=== PATIENT | male | born 1960 | race Caucasian/White ===

== ENCOUNTER 2020-06-01 15:10 | Observation (INO) | payer BC ==
[~2020-06-01] VITALS: Ht 172.7 cm; Wt 86.0 kg
--- NOTE | 2020-06-01 15:45 | NUR ---
PATIENT TO ROOM WITH A STEADY GAIT.
--- NOTE | 2020-06-01 16:05 | NUR ---
WAS UPSET ABOUT THE ABG RETRIVAL TAKING MORE THAN ONE ATTEMPT AND STOPPED THE RT IN TRYING TO TAKE IT. MD NOTIFIED AND TRIED TO TALK TO AND SHE CONTINUED TO REFUSE. ABG WAS NOT TAKEN
--- NOTE | 2020-06-01 16:40 | NUR ---
PT RESTING ON STRETCHER STABLE AND IN NO DISTRESS. FAMILY AT BEDSIDE. TREATMENTS COMPLETED AND PLAN OF CARE DISCUSSED. DENIES ANY NEEDS AT THIS TIME
[2020-06-01 16:47] LABS: HEMATOCRIT 40.2 % (39.0-50.0); HEMOGLOBIN 12.4 g/dl (14.0-18.0); IMMATURE GRANULOCYTES 0.7 % (0.0-5.0); MEAN CELL VOLUME 82.4 fL CALC (80.0-100.0); MEAN CORPUSCULAR HGB 25.4 pG CALC (26.0-32.0); MEAN CORPUSCULAR HGB CONC 30.8 g/dL CAL (32.0-36.0); NEUT# 4.28 thou/uL (1.82-7.42); RED BLOOD COUNT 4.88 mill/uL (4.70-6.10); RED CELL DISTRI WIDTH 14.3 % (11.5-15.5)
[2020-06-01 17:22] LABS: ALBUMIN 4.2 g/dL (3.2-5.0); ALKALINE PHOSPHATASE 65 u/l (38-126); ANION GAP 14 (6-22 (CALC)); BILIRUBIN, TOTAL 0.8 mg/dL (0.0-1.4); BUN 15 mg/dL (9-20); BUN/CREATININE RATIO 17 (12-20 (CALC)); CARBON DIOXIDE 28 mmol/l (22-30); CHLORIDE 101 mmol/l (95-108); CREATININE 0.9 mg/dL (0.7-1.3); GFR > 60 ML/MIN (>=60 (CALC)); GFR FOR AFR.AMER. > 60 ML/MIN (>=60 (CALC)); POTASSIUM 3.4 mmol/l (3.5-5.1); SGOT/AST 64 u/l (17-59); SODIUM 139 mmol/l (137-146); TOTAL PROTEIN 8.9 g/dL (6.3-8.2)
--- NOTE | 2020-06-01 17:47 | NUR ---
PER MD ORDER IV WAS INITIATED. MD AT BEDSIDE DISCUSSING PLAN OF CARE AND RESULTS.
--- NOTE | 2020-06-01 18:26 | NUR ---
DISCHARGE INSTRUCTIONS GIVEN TO PT AND SHE VERBALIZED UNDERSTANDING. PT AMBULATED OUT OF ER WITH STEADY GAIT/ EDU ON DX AND MED
--- NOTE | 2020-06-01 18:50 | NUR ---
REPORT GIVEN TO BRIT
--- NOTE | 2020-06-01 19:08 | NUR ---
REPORT RECEIVED FROM RUDY RN
--- NOTE | 2020-06-01 19:30 | NUR ---
PT RESITNG ON STRETCHER WITH EYES OPEN. RESP EVEN AND UNLABORED. SKIN WARM AND DRY. ADVISED OF CONT WAIT TIME FOR RESULTS. VERBALIZED UNDERSTANDIGN. DENEIS ANY NEEDS. CALL LIGHT WITHIN REACH.
--- NOTE | 2020-06-01 20:30 | NUR ---
PT REQUESTING TO USE URINAL. 400 CC OF AMINA COLORED URINE PRODUCED. PT PLACED BACK INTO BED. TRIAL EXAMINER IN PLACE. O2 @ 2L VIA NC- SAO2 @ 96-97%. PT VERBALIZES NO OTHER NEEDS AT THIS TIME. CALL LIGHT WITHIN REACH.
--- NOTE | 2020-06-01 21:00 | NUR ---
REPORT GIVEN TO KAROL KHALIL.
--- NOTE | 2020-06-01 21:10 | NUR ---
Admission Note Report Given to: KAROL KHALIL Transported by: X Wheelchair Stretcher Transported with: X Nurse Transporter X Patent IV X O2 X Event Marketing Specialist Location: ICU X MS2 PT TRANSPORTED TO [place] VIA WC WITH TELE AND O2 IN PLACE, KAROL KHALIL RECEIVING NURSE BEDSIDE. BELONGINGS IN TOTE WITH PT (BLUE SHIRT, SHOES, PHONE MANAGER CORPORATE STRATEGY AND PHONE)
[2020-06-01 21:37] VITALS: BP 149/91
--- NOTE | 2020-06-01 22:56 | NUR ---
PT ARRIVED TO THE FLOOR AT [facility]. PT IS ALERT AND ORIENTED X 3. PT IS UP AD CORKY. HE IS ABLE TO AMBULATE INDEPENDENTLY. CTA COMPLETED EARLIER, + FOR PNEUMONIA BILATERLY. DENIES PAIN AT THIS TIME. PT DID HAVE A LOW GRADE FEVER ON ADMISSION, 100.4, MEDICATED WITH TYLENOL, WILL MONITOR. BREATHING EVEN AND UNLABORED. UPPER LOBES CLEAR, R MIDDLE DIMISHED, BASES DIMINSHED. WILL MONITOR.
[2020-06-02] VITALS: BP 133/65
--- NOTE | 2020-06-02 00:59 | NUR ---
PT RESTING COMFORTABLY IN BED. PT STATED HE WAS HUGRY AND SLAT TWISTER BROUGHT HIM A TV DINNER. PT TOLERATED WELL. UPON ARRIVAL TO THE FLOOR, ATTEMPTED O FLUSH IV SITE IN RAC WITHOUT SUCCESS, SITE OCCLUDED. NEW SITE STARTED TO THE L OUTER AC, #20, FLUSHES EASILY. PT TOLERATED WELL. LUNGS CTA IN UPPER LOBES, DIMINSHED IN ALL OTHER LOBES. BREATHING EVEN AND UNLABORED. WILL CONTINUE TO MONITOR.
--- NOTE | 2020-06-02 03:39 | NUR ---
PT RESTING QUIETLY IN BED WITH EYES CLOSED. NO COMPLAINTS VOICED AT THIS TIME. NO S/S OF DISTRESS. BREATHING EVEN AND UNLABORED. WILL MONITOR.
[2020-06-02 04:00] VITALS: BP 141/85
[2020-06-02 05:45] LABS: HEMATOCRIT 38.6 % (39.0-50.0); HEMOGLOBIN 12.2 g/dl (14.0-18.0); MEAN CELL VOLUME 81.4 fL CALC (80.0-100.0); MEAN CORPUSCULAR HGB 25.7 pG CALC (26.0-32.0); MEAN CORPUSCULAR HGB CONC 31.6 g/dL CAL (32.0-36.0); NEUT# 5.27 thou/uL (1.82-7.42); RED BLOOD COUNT 4.74 mill/uL (4.70-6.10); RED CELL DISTRI WIDTH 14.3 % (11.5-15.5)
[2020-06-02 06:07] LABS: ALBUMIN 3.4 g/dL (3.2-5.0); ALKALINE PHOSPHATASE 57 u/l (38-126); ANION GAP 13 (6-22 (CALC)); BILIRUBIN, TOTAL 0.6 mg/dL (0.0-1.4); BUN 16 mg/dL (9-20); BUN/CREATININE RATIO 22 (12-20 (CALC)); C-REACTIVE PROTEIN 7.5 mg/dL (0-0.9); CARBON DIOXIDE 26 mmol/l (22-30); CHLORIDE 104 mmol/l (95-108); CREATININE 0.7 mg/dL (0.7-1.3); GFR > 60 ML/MIN (>=60 (CALC)); GFR FOR AFR.AMER. > 60 ML/MIN (>=60 (CALC)); SGOT/AST 52 u/l (17-59); SODIUM 139 mmol/l (137-146); TOTAL PROTEIN 7.3 g/dL (6.3-8.2)
--- NOTE | 2020-06-02 07:14 | NUR ---
PT CONSENTED TO RECEIVE PNEUMONIA VAX BUT IS NOT A CANDIDATE TIL AGE 64 BASED ON COMORBIDITIES
[2020-06-02 08:00] VITALS: BP 144/91
--- NOTE | 2020-06-02 10:00 | NUR ---
PT ROOM CHANGED INTO [facility] PER POSITIVE IgG AND IgM. PT INSTRUCTED ON WHY THIS CHANGE WAS NECESSARY. NO RESPIRATORY ISSUES NOTED.
[2020-06-02 10:45] VITALS: BP 153/90
[2020-06-02 14:35] VITALS: BP 148/83
--- NOTE | 2020-06-02 15:47 | NUR ---
PT SEEN AT REST IN THE BED IN NO DISTRESS. NO SHORTNESS OF BREATH NOTED.
--- NOTE | 2020-06-02 17:22 | NUR ---
PT REMAINS BEFORE, RESTS IN THE BED IN NO ACUTE DISTRESS.
[2020-06-02 18:55] VITALS: BP 159/86
--- NOTE | 2020-06-02 22:36 | NUR ---
LATE ENTRY 1914 SBAR REPORT RECEIVED FROM JOSE MANUEL MARIEE. PATIENT RESTING QUIETLY IN BED. DENIES PAIN AT THIS TIME, NO DISTRESS NOTED. CALL LIGHT WITHIN REACH
[2020-06-03 03:58] VITALS: BP 163/84
--- NOTE | 2020-06-03 04:27 | NUR ---
PULPWOOD BUYER AT BEDSIDE DRAWING LABS, PATIENT TOLERATING WELL. NO COMPLAINTS OF PAIN, NO DISTRESS NOTED. CALL LIGHT WITHIN REACH
[2020-06-03 05:54] LABS: HEMOGLOBIN 12.5 g/dl (14.0-18.0); MEAN CELL VOLUME 82.6 fL CALC (80.0-100.0); MEAN CORPUSCULAR HGB 25.8 pG CALC (26.0-32.0); MEAN CORPUSCULAR HGB CONC 31.3 g/dL CAL (32.0-36.0); RED BLOOD COUNT 4.84 mill/uL (4.70-6.10); RED CELL DISTRI WIDTH 14.3 % (11.5-15.5)
[2020-06-03 06:13] LABS: ANION GAP 14 (6-22 (CALC)); BUN 20 mg/dL (9-20); BUN/CREATININE RATIO 26 (12-20 (CALC)); CARBON DIOXIDE 28 mmol/l (22-30); CHLORIDE 101 mmol/l (95-108); CREATININE 0.8 mg/dL (0.7-1.3); GFR > 60 ML/MIN (>=60 (CALC)); GFR FOR AFR.AMER. > 60 ML/MIN (>=60 (CALC)); MAGNESIUM 2.2 mg/dL (1.6-2.3); POTASSIUM 4.5 mmol/l (3.5-5.1); SODIUM 139 mmol/l (137-146)
[2020-06-03 08:00] VITALS: BP 150/91
--- NOTE | 2020-06-03 09:54 | NUR ---
PT SEEN AWAKE, ALERT, ORIENTED X 3. LUNGS CLEAR BUT DIMINISHED, 2 LPM TURNED DOWN TO 1 LPM. PT DENIES SHORTNESS OF BREATH, NO COUGH.
[2020-06-03 10:30] VITALS: BP 160/77
--- NOTE | 2020-06-03 12:08 | NUR ---
PT SEEN BY DR MELENDEZ THIS MORNING. 6 MINUTE WALK TEST WAS DONE, BUT PT SEEN TO DROP TO 84% THREE MINUTES INTO THE WALK. HE STARTED AT 93-94% AND RECOVERED TO 92% WITHIN A MINUTE. PT HOPES FOR DISCHARGE TO HOME.
[2020-06-03 12:17] LABS: URINE BILIRUBIN - DIPSTICK NEGATIVE (NEGATIVE); URINE BLOOD DIPSTICK NEGATIVE (NEGATIVE); URINE COLOR YELLOW; URINE GLUCOSE - DIPSTICK NEGATIVE (NEGATIVE); URINE KETONE NEGATIVE (NEGATIVE); URINE LEUK ESTERASE NEGATIVE (NEGATIVE); URINE NITRITE - DIPSTICK NEGATIVE (Negative); URINE PH 6.5 (4.5-8.0); URINE PROTEIN - DIPSTICK TRACE mg/dL (NEG-TRACE); URINE SPECIFIC GRAVITY 1.015
[2020-06-03 14:50] VITALS: BP 168/86
[2020-06-03] MEDS ORDERED: ZITHROMAX250 MG PO (15:04)
[2020-06-03] MEDS ORDERED: OXY1 (15:04)
[2020-06-03] MEDS ORDERED: DEXAMETHASON6 MG PO (15:04)
[2020-06-03] MEDS ORDERED: AMLODIPINE BESYL5 MG PO (15:04)
[2020-06-03 15:23] VITALS: BP 168/86
--- NOTE | 2020-06-03 16:13 | NUR ---
PT VERBALIZES UNDERSTANDING OF DC INSTRUCTIONS, TAKEN TO LOBBY WHERE HIS IS WAITING. PT LEAVES [facility] IN STABLE CONDITION. OXYGEN TANK WAS BROUGHT BY ABDIEL AND PT LEAVES USING 2 EMPLOYEE BENEFITS COORDINATOR NC. PT ADVISED TO SELF ISOLATE AND MAINTAIN SOCIAL DISTANCING PER COVID-19 DIAGNOSIS.
== END 2020-06-03 16:07 | disposition home or self-care (01) | DRG 177 ==
LOC: ED 15:10 → ED-I 19:29 → ED 19:39 → MS2 19:40
PROVIDERS: Family Medicine; Nurse Practitioner; ADMIT Internal Medicine; ATTEND Internal Medicine
DX: U07.1 COVID-19 (principal); J12.82 Pneumonia due to coronavirus disease 2019; R09.02 Hypoxemia; K59.00 Constipation, unspecified; I10 Essential (primary) hypertension; Z23 Encounter for immunization
CPT/HCPCS: G0378; J1650; Q9967